=== PATIENT | male | born 2000 | race Two or more races ===

== ENCOUNTER 2019-05-29 18:12 | Emergency (ER) | payer SELFPAY ==
[~2019-05-29] VITALS: Ht 160 cm; Wt 77.1 kg
[2019-05-29 18:33] VITALS: BP 129/73
== END 2019-05-29 19:31 | disposition home or self-care (01) ==
LOC: ER 18:17
DX: S51.812A Laceration without foreign body of left forearm, initial encounter (principal); W26.8XXA Contact with other sharp object(s), not elsewhere classified, initial encounter; Y93.39 Activity, other involving climbing, rappelling and jumping off; Y92.89 Other specified places as the place of occurrence of the external cause; Y99.8 Other external cause status
CPT/HCPCS: 12002